=== PATIENT | male | born 1980 | race Native Hawaiian/Other Pacific Islander ===

== ENCOUNTER 2016-08-25 18:37 | Emergency (ER) | payer BC ==
[~2016-08-25] VITALS: Ht 154.9 cm; Wt 89.8 kg
[2016-08-25] MEDS ORDERED: LISI20TA11 PO (19:35)
[2016-08-25] MEDS ORDERED: TRAM50TA PO (19:36)
[2016-08-25] MEDS ORDERED: XANAX XR1 MG PO (19:36)
[2016-08-25] MEDS ORDERED: HYDR-3182 PO (19:37)
[2016-08-25 20:05] LABS: PLATELET COUNT 256 K/uL (142-355)
[2016-08-25 20:10] LABS: POTASSIUM 3.5 mmol/L (3.6-5.2); SODIUM 137 mmol/L (136-145)
[2016-08-25 20:33] LABS: PARTIAL THROMBOPLASTIN TIME 25.6 SECONDS (24.5-33.6)
== END 2016-08-25 21:10 | disposition home or self-care (01) ==
LOC: ED 18:37
PROVIDERS: Family Medicine
DX: R42 Dizziness and giddiness (principal); K58.8 Other irritable bowel syndrome; R10.32 Left lower quadrant pain
CPT/HCPCS: 36415; 80053; 85027; 85610; 85730; 96374; 99284; J1885